=== PATIENT | male | born 1990 | race Caucasian/White ===

== ENCOUNTER 2017-01-05 19:59 | Emergency (ER) | payer OTHER ==
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
--- NOTE | 2017-01-05 20:29 | XR ---
EXAMINATION TYPE: XR shoulder complete RT DATE OF EXAM: 01/05/2017 COMPARISON: NONE HISTORY: Shoulder pain TECHNIQUE: 3 views FINDINGS: I see no fracture nor dislocation. Joint spaces are normal. There are no pathologic calcifi cations. IMPRESSION: Negative right shoulder exam.
[2017-01-05 21:15] VITALS: BP 116/60; PULSE 90; RESP 16; TEMP 96.9
== END 2017-01-05 21:15 | disposition home or self-care (01) ==
LOC: EC 19:59
DX: S40.011A Contusion of right shoulder, initial encounter (principal); F17.200 Nicotine dependence, unspecified, uncomplicated; Z86.73 Personal history of transient ischemic attack (TIA), and cerebral infarction without residual deficits; Z88.8 Allergy status to other drugs, medicaments and biological substances; W20.8XXA Other cause of strike by thrown, projected or falling object, initial encounter; Y93.89 Activity, other specified
CPT/HCPCS: 99284

== ENCOUNTER 2017-11-12 05:20 | Emergency (ER) | payer OTHER ==
[2017-11-12] MEDS ORDERED: CLINDAMYCIN 900 MG in DEXTROSE 5% IN WATER 50 ML IVPB STA ×2 (05:57)
--- NOTE | 2017-11-12 06:07 | ED ---
Upper Extremity HPI - General Chief Complaint: Extremity Injury, Upper Stated Complaint: swollen finger post op Time Seen by Provider: 11/12/17 05:29 Source: patient Mode of arrival: ambulatory Limitations: no limitations - History of Present Illness Initial Comments: 26 years old male injured his (fourth finger about 2 years ago he has seen A hand specialist Abbie Valle in [place], he has some ongoing drainage from this finger for about a year now. He injured his finger within the last 24 hours he woke up with throbbing finger pain and now pain is also radiating to the nipple neighboring fingers going to the fifth finger as well as his third finger near the site of the review of system is unremarkable otherwise - Related Data Home Medications Medication Instructions Recorded Confirmed Acetaminophen with Codeine 1 tab PO Q4H PRN 11/12/17 11/12/17 [Tylenol w/codeine #3] Previous Rx's Medication Instructions Recorded Amoxicillin/Potassium Clav 1 tab PO Q12HR #10 tab 11/12/17 [Augmentin 875-125 Tablet] Allergies Allergy/AdvReac Type Severity Reaction Status Date / Time esomeprazole magnesium Allergy Rash/Hives Verified 01/05/17 20:06 [From Nexium] omeprazole [From Prilosec] Allergy Rash/Hives Verified 01/05/17 20:06 omeprazole magnesium Allergy Rash/Hives Verified 01/05/17 20:06 [From Prilosec] Review of Systems ROS Statement: Those systems with pertinent positive or pertinent negative responses have been documented in the HPI. ROS Other: All systems not noted in ROS Statement are negative. Past Medical History Past Medical History: Asthma, CVA/TIA, GERD/Reflux Additional Past Medical History / Comment(s): davm spine History of Any Multi-Drug Resistant Organisms: None Reported Past Surgical History: Adenoidectomy, Hernia Repair, Orthopedic Surgery, Tonsillectomy Additional Past Surgical History / Comment(s): right forearm, left hand sx Past Psychological History: Bipolar Smoking Status: Current every day smoker Past Alcohol Use History: Rare Past Drug Use History: Marijuana General Exam - General Exam Comments Initial Comments: General: The patient is awake and alert, in no distress, and does not appear acutely ill. Skin: Skin is warm and dry and no rashes or lesions are noted. Eye: Pupils are equal, round and reactive to light, extra-ocular movements are intact; there is normal conjunctiva bilaterally. Ears, nose, mouth and throat: There are moist mucous membranes and no oral lesions. Neck: The neck is supple, there is no tenderness or JVD. Cardiovascular: There is a regular rate and rhythm. No murmur, rub or gallop is appreciated. Respiratory: To auscultation bilateral, no wheezing no rhonchi no distress respiratory kunz noticed Gastrointestinal: Soft, non-distended, non-tender abdomen without masses or organomegaly noted. There is no rebound or guarding present. Bowel sounds are unremarkable. Back: There is no tenderness to palpation in the midline. There is no obvious deformity. Musculoskeletal: Left hand fourth finger is slightly flexed about 25 at the distal interphalangeal joint, it seems quite tense and swollen and quite tender , there is a chronic wound size of about 3 mm has some mild secretions oozing Neurological: CN II-XII intact, Cranial nerves III through XII are intact. There are no obvious motor or sensory deficits. Coordination appears grossly intact. Speech is normal. Psychiatric: Cooperative, appropriate mood & affect, normal judgment. Limitations: no limitations Course Vital Signs 11/12/17 05:23 Temperature 97.6 F Pulse Rate 50 L Respiratory 20 Rate Blood Pressure 111/61 O2 Sat by Pulse 99 Oximetry CBC is normal, I&D was done on his fourth finger he does have a hand specialist for the last 2 years he wants to go see his hand specialist I agree with that when he was giving clindamycin IV in the ER x-ray was done it ruled out any osteomyelitis Medical Decision Making - Lab Data Result diagrams: 11/12/17 06:00 Lab Results 11/12/17 Range/Units 06:00 WBC 8.5 (3.8-10.6) k/uL RBC 4.38 (4.30-5.90) m/uL Hgb 14.2 (13.0-17.5) gm/dL Hct 40.2 (39.0-53.0) % MCV 91.7 (80.0-100.0) fL MCH 32.5 (25.0-35.0) pg MCHC 35.4 (31.0-37.0) g/dL RDW 12.6 (11.5-15.5) % Plt Count 152 (150-450) k/uL Neutrophils % 70 % Lymphocytes % 17 % Monocytes % 7 % Eosinophils % 5 % Basophils % 0 % Neutrophils # 5.9 (1.3-7.7) k/uL Lymphocytes # 1.5 (1.0-4.8) k/uL Monocytes # 0.6 (0-1.0) k/uL Eosinophils # 0.4 (0-0.7) k/uL Basophils # 0.0 (0-0.2) k/uL Disposition Clinical Impression: Infection of left hand Disposition: HOME SELF-CARE Condition: Good Instructions: Parony[facility]ia (ED) Additional Instructions: Will see Dr. Abbie Valle today hand specialist today Prescriptions: Amoxicillin/Potassium Clav [Augmentin 875-125 Tablet] 1 tab PO Q12HR #10 tab Is patient prescribed a controlled substance at d/c from ED?: No Referrals: Derek Arias DO [Primary Care Provider] - 1-2 days
[2017-11-12 06:32] LABS: Basophils % (A) 0 %; Eosinophils # (A) 0.4 k/uL (0-0.7); Eosinophils % (A) 5 %; HCT 40.2 % (39.0-53.0); HGB 14.2 gm/dL (13.0-17.5); Lymphocytes # (A) 1.5 k/uL (1.0-4.8); Lymphocytes % (A) 17 %; MCH 32.5 pg (25.0-35.0); MCHC 35.4 g/dL (31.0-37.0); MCV 91.7 fL (80.0-100.0); Monocytes # (A) 0.6 k/uL (0-1.0); Monocytes % (A) 7 %; Neutrophils # (A) 5.9 k/uL (1.3-7.7); Neutrophils % (A) 70 %; Platelet Count 152 k/uL (150-450); RBC 4.38 m/uL (4.30-5.90); RDW 12.6 % (11.5-15.5); WBC 8.5 k/uL (3.8-10.6)
--- NOTE | 2017-11-12 06:49 | XR ---
EXAM: XR Left Finger(s), 2 or More Views CLINICAL HISTORY: ITS.REASON XR Reason: Pain TECHNIQUE: Frontal, lateral and oblique views of finger(s) of the left hand. COMPARISON: No relevant prior studies available. FINDINGS: Bones/joints: No acute fracture or dislocation. The fourth digit is flexed position at the PIP. This may reflect ligamentous injury. Soft tissues: No radiopaque foreign body. Diffuse soft tissue swelling about the fourth mid to distal digit IMPRESSION: Soft tissue swelling about the fourth digit. No acute bony abnormality.
[2017-11-12] MEDS ORDERED: KETOROLAC 30 MG/ML 1 ML VIAL IVP STA (07:36)
[2017-11-12 07:47] VITALS: BP 111/76; PULSE 70; RESP 16
[2017-11-12 07:52] VITALS: TEMP 98.2
--- NOTE | 2017-11-13 02:07 | CDI ---
Documentation Clarification OP Dear Dave LESLIE MD As reviewed the chart, the documentation for I&D procedure is missing. Please do the addendum to code the procedure. Thank you, Ashely Calixto Mathematics Instructor If you have any question, Please contact blood bank manager at [phone] [facility]
--- NOTE | 2017-11-24 15:16 | ED ---
Medical Decision Making - Lab Data Result diagrams: 11/12/17 06:00 Lab Results 11/12/17 Range/Units 06:00 WBC 8.5 (3.8-10.6) k/uL RBC 4.38 (4.30-5.90) m/uL Hgb 14.2 (13.0-17.5) gm/dL Hct 40.2 (39.0-53.0) % MCV 91.7 (80.0-100.0) fL MCH 32.5 (25.0-35.0) pg MCHC 35.4 (31.0-37.0) g/dL RDW 12.6 (11.5-15.5) % Plt Count 152 (150-450) k/uL Neutrophils % 70 % Lymphocytes % 17 % Monocytes % 7 % Eosinophils % 5 % Basophils % 0 % Neutrophils # 5.9 (1.3-7.7) k/uL Lymphocytes # 1.5 (1.0-4.8) k/uL Monocytes # 0.6 (0-1.0) k/uL Eosinophils # 0.4 (0-0.7) k/uL Basophils # 0.0 (0-0.2) k/uL Disposition Clinical Impression: Infection of left hand Disposition: HOME SELF-CARE Condition: Good Instructions: Parony[facility]ia (ED) Additional Instructions: Will see Dr. Abbie Valle today hand specialist today Prescriptions: Amoxicillin/Potassium Clav [Augmentin 875-125 Tablet] 1 tab PO Q12HR #10 tab Is patient prescribed a controlled substance at d/c from ED?: No Referrals: Derek Arias DO [Primary Care Provider] - 1-2 days Procedures - Incision & Drainage Consent Obtained: verbal consent Time Out Performed?: Yes Site: hand Anesthetic Used: lidocaine 1% I&D Cleaning Method: Chloroprep Sterile Field Used?: Yes Scalpel Used: #11 Irrigation Performed?: Yes I&D Drainage Obtained: Serous Culture Obtained?: Yes Complications: other (none) Patient Tolerated Procedure: well
== END 2017-11-12 07:51 | disposition home or self-care (01) ==
LOC: EC 05:20
DX: L03.012 Cellulitis of left finger (principal); F17.200 Nicotine dependence, unspecified, uncomplicated; Z88.8 Allergy status to other drugs, medicaments and biological substances
CPT/HCPCS: 36415; 85025; 87070; 87205; 73140; 99283; 10060; 96365; 96375; J1885

== ENCOUNTER 2017-11-14 10:21 | Emergency (ER) | payer OTHER ==
[2017-11-14 10:34] VITALS: BP 121/75; PULSE 85; RESP 16; TEMP 97.9
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
== END 2017-11-14 11:07 | disposition home or self-care (01) ==
LOC: EC 10:21
DX: L08.9 Local infection of the skin and subcutaneous tissue, unspecified (principal); F17.200 Nicotine dependence, unspecified, uncomplicated; Z86.73 Personal history of transient ischemic attack (TIA), and cerebral infarction without residual deficits; Z88.8 Allergy status to other drugs, medicaments and biological substances
CPT/HCPCS: 99282

== ENCOUNTER 2017-12-02 14:24 | Emergency (ER) | payer OTHER ==
[2017-12-02 15:03] VITALS: BP 125/78; PULSE 60; RESP 18; TEMP 98.3
--- NOTE | 2017-12-02 15:15 | XR ---
EXAMINATION TYPE: XR hand complete LT DATE OF EXAM: 12/02/2017 CLINICAL HISTORY: Left hand pain after crushing injury TECHNIQUE: Frontal, lateral and oblique images of the left hand are obtained. COMPARISON: Left hand x-ray March 06, 2016. FINDINGS: Overlying gauze material mid to distal fourth digit is present making evaluation at this le xochilt suboptimal of the soft tissue. There is no acute fracture/dislocation evident in the left hand. The joint spaces in the left hand appear within normal limits. The overlying soft tissue otherwise a ppears unremarkable. IMPRESSION: There is no acute fracture or dislocation in the left hand.
--- NOTE | 2017-12-02 15:28 | ED ---
Upper Extremity HPI - General Chief Complaint: Extremity Injury, Upper Stated Complaint: LEFT HAND INJURY Time Seen by Provider: 12/02/17 15:23 Source: patient, RN notes reviewed Mode of arrival: ambulatory Limitations: no limitations - History of Present Illness Initial Comments: 27-year-old male presents emergency from chief complaint of left hand pain. Patient states that he is hand on a 80 pound bucket of concrete yesterday. Patient states it's sore today and cannot swing his hammer at work. Patient had a leave work because of the pain. Patient is right-hand dominant but swings a hammer with his left hand. Patient states there is no swelling no ecchymosis no other noted injuries. - Related Data Previous Rx's Medication Instructions Recorded Amoxicillin/Potassium Clav 1 tab PO Q12HR #10 tab 11/12/17 [Augmentin 875-125 Tablet] Ibuprofen [Motrin] 600 mg PO Q8HR PRN #30 tab 12/02/17 Allergies Allergy/AdvReac Type Severity Reaction Status Date / Time esomeprazole magnesium Allergy Rash/Hives Verified 12/02/17 15:03 [From Nexium] omeprazole [From Prilosec] Allergy Rash/Hives Verified 12/02/17 15:03 omeprazole magnesium Allergy Rash/Hives Verified 12/02/17 15:03 [From Prilosec] Review of Systems ROS Statement: Those systems with pertinent positive or pertinent negative responses have been documented in the HPI. ROS Other: All systems not noted in ROS Statement are negative. Past Medical History Past Medical History: Asthma, CVA/TIA, GERD/Reflux Additional Past Medical History / Comment(s): dav spine History of Any Multi-Drug Resistant Organisms: None Reported Past Surgical History: Adenoidectomy, Hernia Repair, Orthopedic Surgery, Tonsillectomy Additional Past Surgical History / Comment(s): right forearm, left hand sx Past Psychological History: Bipolar Smoking Status: Current every day smoker Past Alcohol Use History: Rare Past Drug Use History: Marijuana General Exam Limitations: no limitations General appearance: alert, in no apparent distress Neck exam: Present: normal inspection. Absent: tenderness, meningismus, lymphadenopathy Respiratory exam: Present: normal lung sounds bilaterally. Absent: respiratory distress, wheezes, rales, rhonchi, stridor Cardiovascular Exam: Present: regular rate, normal rhythm, normal heart sounds. Absent: systolic murmur, diastolic murmur, rubs, gallop, clicks Extremities exam: Present: other (Left hand there is tenderness along the fourth and fifth metacarpal region, no iris deformity neurovascular intact no ecchymosis) Course Vital Signs 12/02/17 15:00 Temperature 98.3 F Pulse Rate 60 Respiratory 18 Rate Blood Pressure 125/78 O2 Sat by Pulse 98 Oximetry Medical Decision Making - Medical Decision Making 27-year-old male presented from for left hand pain. Patient is left-hand contusion x-rays shows no acute fracture. Patient will be discharged with ibuprofen and work note for 2 days. Return parameters were discussed. Disposition Clinical Impression: Contusion of left hand Disposition: HOME SELF-CARE Condition: Stable Instructions: Contusion in Adults (ED) Additional Instructions: Please return to the Emergency Department if symptoms worsen or any other concerns. Prescriptions: Ibuprofen [Motrin] 600 mg PO Q8HR PRN #30 tab PRN Reason: Pain Is patient prescribed a controlled substance at d/c from ED?: No Referrals: Derek Arias DO [Primary Care Provider] - 1-2 days Time of Disposition: 15:28
== END 2017-12-02 15:39 | disposition home or self-care (01) ==
LOC: EC 14:24
DX: S60.222A Contusion of left hand, initial encounter (principal); F17.200 Nicotine dependence, unspecified, uncomplicated; Z88.8 Allergy status to other drugs, medicaments and biological substances; Z98.890 Other specified postprocedural states; X50.0XXA Overexertion from strenuous movement or load, initial encounter; Y99.0 Civilian activity done for income or pay
CPT/HCPCS: 99283

== ENCOUNTER 2018-08-25 14:24 | Emergency (ER) | payer OTHER ==
[2018-08-25 14:40] VITALS: RESP 18; TEMP 98.2
--- NOTE | 2018-08-25 15:16 | ED ---
ENT HPI - General Chief complaint: ENT Stated complaint: Ear pain Time Seen by Provider: 08/25/18 14:45 Source: patient, RN notes reviewed Mode of arrival: ambulatory Limitations: no limitations - History of Present Illness Initial comments: 27-year-old male presents emergency Department with chief complaint left ear pain, difficulty hearing. Patient states she's had problems for the last one year. He states his when he believes is from getting water in his ear. He states that he's been weak night with #pain then completely resolves. Denies fevers or chills. Denies any pain around his ear. Denies any current headache, dizziness, blurred vision, URI symptoms. - Related Data Previous Rx's Medication Instructions Recorded Amoxicillin/Potassium Clav 1 tab PO Q12HR #10 tab 11/12/17 [Augmentin 875-125 Tablet] Ibuprofen [Motrin] 600 mg PO Q8HR PRN #30 tab 12/02/17 Amoxicillin 875 mg PO Q12HR #20 tablet 08/25/18 Allergies Allergy/AdvReac Type Severity Reaction Status Date / Time esomeprazole magnesium Allergy Rash/Hives Verified 08/25/18 14:40 [From Nexium] omeprazole [From Prilosec] Allergy Rash/Hives Verified 08/25/18 14:40 omeprazole magnesium Allergy Rash/Hives Verified 08/25/18 14:40 [From Prilosec] Review of Systems ROS Statement: Those systems with pertinent positive or pertinent negative responses have been documented in the HPI. ROS Other: All systems not noted in ROS Statement are negative. Past Medical History Past Medical History: Asthma, CVA/TIA, GERD/Reflux Additional Past Medical History / Comment(s): davm spine History of Any Multi-Drug Resistant Organisms: None Reported Past Surgical History: Adenoidectomy, Hernia Repair, Orthopedic Surgery, Tonsillectomy Additional Past Surgical History / Comment(s): right forearm, left hand sx Past Psychological History: Bipolar Smoking Status: Current every day smoker Past Alcohol Use History: Rare Past Drug Use History: Marijuana General Exam Limitations: no limitations General appearance: alert, in no apparent distress Head exam: Present: atraumatic, normocephalic, normal inspection Eye exam: Present: normal appearance, PERRL, EOMI. Absent: scleral icterus, conjunctival injection, periorbital swelling ENT exam: Present: normal oropharynx, mucous membranes moist, normal external ear exam (Cerumen impaction on the left) Neck exam: Present: normal inspection, full ROM. Absent: tenderness, meningismus, lymphadenopathy Respiratory exam: Present: normal lung sounds bilaterally. Absent: respiratory distress, wheezes, rales, rhonchi, stridor Cardiovascular Exam: Present: regular rate, normal rhythm, normal heart sounds. Absent: systolic murmur, diastolic murmur, rubs, gallop, clicks Course Vital Signs 08/25/18 14:37 Temperature 98.2 F Pulse Rate 81 Respiratory 18 Rate Blood Pressure 123/83 O2 Sat by Pulse 98 Oximetry Procedures - Ear Wax Removal Left Ear Cerumenolytic Used: 5-10% Sodium Bicarb solution Ear Canal Irrigated by: MD BECKIE Ear Canal Irrigated With: warm saline with H2O2 using syringe/angiocath Ear Canal(s) Curetted: plastic scoops Results: Re-examined: cerumen removed completely TM Visible: TM(s) erythematous Ear Canal: atraumatic Patient Tolerated Procedure: well, no complications Complications: no problems Medical Decision Making - Medical Decision Making 27-year-old male presents emergency department for left ear pain. Patient's found to have cerumen impaction. This was lavaged. There is mild residual erythema we treated for suspected otitis media. Patient be discharged return parameters were discussed. Disposition Clinical Impression: Otitis media, Impacted cerumen of left ear Disposition: HOME SELF-CARE Condition: Stable Instructions (If sedation given, give patient instructions): Earache (ED) Additional Instructions: Please return to the Emergency Department if symptoms worsen or any other concerns. Prescriptions: Amoxicillin 875 mg PO Q12HR #20 tablet Is patient prescribed a controlled substance at d/c from ED?: No Referrals: Asif Goldsmith MD [Primary Care Provider] - 1-2 days Time of Disposition: 16:13
[2018-08-25 16:43] VITALS: BP 123/68; PULSE 69
== END 2018-08-25 16:42 | disposition home or self-care (01) ==
LOC: EC 14:24
DX: H61.22 Impacted cerumen, left ear (principal); H66.92 Otitis media, unspecified, left ear; F17.200 Nicotine dependence, unspecified, uncomplicated; Z86.73 Personal history of transient ischemic attack (TIA), and cerebral infarction without residual deficits; Z88.8 Allergy status to other drugs, medicaments and biological substances
CPT/HCPCS: 69210; 99282

== ENCOUNTER → 2018-09-10 | Outpatient (CLI) | payer OTHER ==
[2018-09-10 14:47] LABS: Basophils # (A) 0.1 k/uL (0-0.2); Basophils % (A) 1 %; Eosinophils # (A) 0.4 k/uL (0-0.7); Eosinophils % (A) 6 %; HGB 14.6 gm/dL (13.0-17.5); Lymphocytes % (A) 30 %; MCH 30.9 pg (25.0-35.0); MCHC 34.7 g/dL (31.0-37.0); Monocytes # (A) 0.5 k/uL (0-1.0); Monocytes % (A) 8 %; Neutrophils # (A) 3.7 k/uL (1.3-7.7); Neutrophils % (A) 54 %; Platelet Count 212 k/uL (150-450); RBC 4.72 m/uL (4.30-5.90); WBC 6.8 k/uL (3.8-10.6)
[2018-09-10 19:07] LABS: Valproic Acid (Depakene) 34.2 ug/mL (50.0-100.0); Vitamin D 25 Hydroxy 20.2 ng/mL (30.0-100.0)
[2018-09-10 19:14] LABS: Albumin 4.3 g/dL (3.80-4.90); Albumin/Globulin Ratio 2.53 (1.60-3.17); Anion Gap 6.3 mmol/L (4.00-12.00); Calcium 9.2 mg/dL (8.7-10.3); Carbon Dioxide 26.7 mmol/L (21.6-31.8); Globulin 1.7 g/dL (1.6-3.3); Potassium 4.4 mmol/L (3.5-5.5); Total Bilirubin 0.3 mg/dL (0.2-1.2)
[2018-09-10 19:21] LABS: T4, Free (Free Thyroxine) 1.1 ng/dL (0.80-1.80)
== END | disposition home or self-care (01) ==
LOC: LABWHC1 13:16
PROVIDERS: ATTEND Nurse Practitioner Acute Care
DX: E55.9 Vitamin D deficiency, unspecified (principal); E03.9 Hypothyroidism, unspecified; R53.82 Chronic fatigue, unspecified; R56.9 Unspecified convulsions
CPT/HCPCS: 36415; 80053; 80164; 82306; 82607; 84207; 84439; 84443; 84481; 85025

== ENCOUNTER 2021-03-11 11:04 | Emergency (ER) | payer OTHER ==
[2021-03-11 11:30] VITALS: BP 114/69; PULSE 74; RESP 18; TEMP 98.1
[2021-03-11] MEDS ORDERED: ONDANSETRON 4 MG/2 ML VIAL IVP STA (11:37)
[2021-03-11] MEDS ORDERED: SODIUM CHLORIDE 0.9% 1,000 ML IV STA (11:37)
[2021-03-11 12:00] LABS: Basophils # (A) 0.1 k/uL (0-0.2); Basophils % (A) 2 %; Eosinophils # (A) 0.4 k/uL (0-0.7); Eosinophils % (A) 6 %; HCT 44.3 % (39.0-53.0); HGB 15.5 gm/dL (13.0-17.5); Lymphocytes # (A) 1.3 k/uL (1.0-4.8); Lymphocytes % (A) 20 %; MCH 33.5 pg (25.0-35.0); MCV 95.9 fL (80.0-100.0); Mean Platelet Volume 8.5; Monocytes # (A) 0.4 k/uL (0-1.0); Monocytes % (A) 7 %; Neutrophils % (A) 61 %; Platelet Count 159 k/uL (150-450); RBC 4.62 m/uL (4.30-5.90); RDW 12.1 % (11.5-15.5); WBC 6.6 k/uL (3.8-10.6)
[2021-03-11 12:13] LABS: ALT 32 U/L (4-49); AST 39 U/L (17-59); African American GFR (CKD) >90 (>60 ml/min/1.73 sqM); Albumin 4.2 g/dL (3.5-5.0); Alkaline Phosphatase 64 U/L (38-126); Anion Gap 4 mmol/L; Blood Urea Nitrogen 11 mg/dL (9-20); Calcium 9.1 mg/dL (8.4-10.2); Carbon Dioxide 25 mmol/L (22-30); Chloride 108 mmol/L (98-107); Glucose 99 mg/dL (74-99); Lipase 81 U/L (23-300); Non-African American GFR(CKD) >90 (>60 ml/min/1.73 sqM); Potassium 4.5 mmol/L (3.5-5.1); Sodium 137 mmol/L (137-145); Total Bilirubin 0.5 mg/dL (0.2-1.3); Total Protein 6.7 g/dL (6.3-8.2)
--- NOTE | 2021-03-11 12:20 | ED ---
General Adult HPI - General Chief complaint: Nausea/Vomiting/Diarrhea Stated complaint: Nausea Time Seen by Provider: 03/11/21 11:33 Source: patient, RN notes reviewed Mode of arrival: ambulatory Limitations: no limitations - History of Present Illness Initial comments: 30-year-old male with a past medical history of asthma GERD since to the emergency room for nausea vomiting diarrhea. Patient states this started last night. States he has been in and out of the bathroom all day. He denies abdominal pain. Patient states he can't go to work at his work wanted him to come in. Denies fevers.patient does state that his nausea has subsided and he w as able to keep down a little bit of water but is still having diarrhea. Patient has no other complaints at this time including shortness of breath, chest pain, abdominal pain, headache, or visual changes. - Related Data Previous Rx's Medication Instructions Recorded Ondansetron [Zofran ODT] 4 mg PO Q8HR PRN #15 tab 03/11/21 Allergies Allergy/AdvReac Type Severity Reaction Status Date / Time esomeprazole magnesium Allergy Rash/Hives Verified 03/11/21 11:53 [From Nexium] omeprazole [From Prilosec] Allergy Rash/Hives Verified 03/11/21 11:53 omeprazole magnesium Allergy Rash/Hives Verified 03/11/21 11:53 [From Prilosec] Review of Systems ROS Statement: Those systems with pertinent positive or pertinent negative responses have been documented in the HPI. ROS Other: All systems not noted in ROS Statement are negative. Past Medical History Past Medical History: Asthma, CVA/TIA, GERD/Reflux Additional Past Medical History / Comment(s): davm spine History of Any Multi-Drug Resistant Organisms: None Reported Past Surgical History: Adenoidectomy, Hernia Repair, Orthopedic Surgery, Tonsillectomy Additional Past Surgical History / Comment(s): right forearm, left hand sx Past Psychological History: Bipolar Smoking Status: Current every day smoker Past Alcohol Use History: Rare Past Drug Use History: Marijuana General Exam Limitations: no limitations General appearance: alert, in no apparent distress Head exam: Present: atraumatic Eye exam: Present: normal appearance, PERRL, EOMI. Absent: scleral icterus, conjunctival injection ENT exam: Present: normal exam, mucous membranes moist Neck exam: Present: normal inspection, full ROM. Absent: tenderness Respiratory exam: Present: normal lung sounds bilaterally. Absent: respiratory distress, wheezes Cardiovascular Exam: Present: regular rate, normal rhythm, normal heart sounds GI/Abdominal exam: Present: soft, normal bowel sounds. Absent: distended, tenderness Course Vital Signs 03/11/21 11:26 Temperature 98.1 F Pulse Rate 74 Respiratory 18 Rate Blood Pressure 114/69 O2 Sat by Pulse 99 Oximetry Medical Decision Making - Medical Decision Making Vitals are stable. CBC CMP unremarkable. Lipase is normal. Patient likely has a viral gastroenteritis. He was given fluids and Zofran. He needs a work note which he states his he is here. He can be discharged to follow up with primary care. Will return here for any worsening symptoms. - Lab Data Result diagrams: 03/11/21 11:46 03/11/21 11:46 Lab Results 03/11/21 03/11/21 Range/Units 11:46 11:46 WBC 6.6 (3.8-10.6) k/uL RBC 4.62 (4.30-5.90) m/uL Hgb 15.5 (13.0-17.5) gm/dL Hct 44.3 (39.0-53.0) % MCV 95.9 (80.0-100.0) fL MCH 33.5 (25.0-35.0) pg MCHC 35.0 (31.0-37.0) g/dL RDW 12.1 (11.5-15.5) % Plt Count 159 (150-450) k/uL MPV 8.5 Neutrophils % 61 % Lymphocytes % 20 % Monocytes % 7 % Eosinophils % 6 % Basophils % 2 % Neutrophils # 4.0 (1.3-7.7) k/uL Lymphocytes # 1.3 (1.0-4.8) k/uL Monocytes # 0.4 (0-1.0) k/uL Eosinophils # 0.4 (0-0.7) k/uL Basophils # 0.1 (0-0.2) k/uL Sodium 137 (137-145) mmol/L Potassium 4.5 (3.5-5.1) mmol/L Chloride 108 H (98-107) mmol/L Carbon Dioxide 25 (22-30) mmol/L Anion Gap 4 mmol/L BUN 11 (9-20) mg/dL Creatinine 0.94 (0.66-1.25) mg/dL Est GFR (CKD-EPI)AfAm >90 (>60 ml/min/1.73 sqM) Est GFR (CKD-EPI)NonAf >90 (>60 ml/min/1.73 sqM) Glucose 99 (74-99) mg/dL Calcium 9.1 (8.4-10.2) mg/dL Total Bilirubin 0.5 (0.2-1.3) mg/dL AST 39 (17-59) U/L ALT 32 (4-49) U/L Alkaline Phosphatase 64 (38-126) U/L Total Protein 6.7 (6.3-8.2) g/dL Albumin 4.2 (3.5-5.0) g/dL Lipase 81 (23-300) U/L Disposition Clinical Impression: Nausea & vomiting, Diarrhea Disposition: HOME SELF-CARE Condition: Good Instructions (If sedation given, give patient instructions): Acute Nausea and Vomiting (ED), Acute Diarrhea (ED) Additional Instructions: Please take nausea medicine as needed. Please follow-up with your doctor in one to 2 days. Return to the emergency room for any worsening symptoms. Prescriptions: Ondansetron [Zofran ODT] 4 mg PO Q8HR PRN #15 tab PRN Reason: Nausea Is patient prescribed a controlled substance at d/c from ED?: No Referrals: Rocio Summers MD [STAFF PHYSICIAN] - 1-2 days Time of Disposition: 13:03
== END 2021-03-11 13:29 | disposition home or self-care (01) ==
LOC: EC 11:04
DX: R11.2 Nausea with vomiting, unspecified (principal); R19.7 Diarrhea, unspecified; J45.909 Unspecified asthma, uncomplicated; K21.9 Gastro-esophageal reflux disease without esophagitis; F17.200 Nicotine dependence, unspecified, uncomplicated; F12.90 Cannabis use, unspecified, uncomplicated
CPT/HCPCS: 36415; 80053; 83690; 85025; 99284; 96374; 96361; J2405

== ENCOUNTER → 2022-01-09 | Outpatient (CLI) | payer OTHER ==
--- NOTE | 2022-01-09 11:12 | XR ---
EXAMINATION TYPE: XR cervical spine comp DATE OF EXAM: 01/09/2022 11:00 AM INDICATION: Patient age:Male; 31 years old; Reason for study: S16.1XXD S29.012A; COMPARISON: None TECHNIQUE: The cervical spine was imaged in 4 projections. Frontal, lateral, odontoid and bilateral o blique. FINDINGS: The osseous structures show normal alignment without evidence of an acute fracture. The intervertebra l disk spaces are preserved. Pedicles are intact. Soft tissues are within normal limits. The odonto id appears intact. IMPRESSION: 1. No fracture or dislocation. 2. Minimal degenerative disc disease changes of the cervical spine.
--- NOTE | 2022-01-09 11:19 | XR ---
EXAMINATION TYPE: XR thoracic spine 3 views complete, XR shoulder complete 3 views RT DATE OF EXAM: 01/09/2022 Comparison: None Clinical History: 31-year-old male S16.1XXD, S29.012A Findings: THORACIC SPINE: Levoconvex curvature upper third thoracic spine. 12 rib-bearing thoracic vertebral bodies. All pedicl es are visualized. Slight accentuated mid thoracic kyphosis. Mild degenerative disc disease mid to lo wer thoracic spine. Vertebral body heights are preserved and alignment is maintained. RIGHT SHOULDER: AC joint is intact. Subacromial space is preserved. No delineation of the greater tuberosity. No tend inous or bursal calcifications. No acute fracture, subluxation, or dislocation. Impression: 1. Thoracic spine: Levoconvex scoliosis upper third thoracic spine. Mild degenerative disc disease mi d to lower thoracic spine. No vertebral compression collapse or malalignment. 2. Right shoulder: No acute osseous abnormality seen.
== END | disposition home or self-care (01) ==
LOC: RADXRMAIN 10:01
PROVIDERS: ATTEND Emergency Medicine
DX: S16.1XXD Strain of muscle, fascia and tendon at neck level, subsequent encounter (principal); M50.30 Other cervical disc degeneration, unspecified cervical region
CPT/HCPCS: 72050; 72072

== ENCOUNTER 2022-09-17 12:17 | Emergency (ER) | payer OTHER ==
[2022-09-17 13:10] VITALS: RESP 20
--- NOTE | 2022-09-17 13:27 | ED ---
General Adult HPI - General Chief complaint: Extremity Injury, Upper Stated complaint: [facility] - lt hand injury Time Seen by Provider: 09/17/22 13:00 Source: patient, RN notes reviewed, old records reviewed Mode of arrival: ambulatory Limitations: no limitations - History of Present Illness Initial comments: This is a 31-year-old male who presents emergency Department complaining of left hand pain and left forearm pain. Patient states she jumped off a six-foot platform and on the way down hit his hand into a bunch of pallets on the way down he had 2 or 3 times. Patient states he has no wrist pain denies any shoulder pain or any other injury at this time. Patient is not bleeding or have any abrasions. - Related Data Previous Rx's Medication Instructions Recorded Ondansetron [Zofran ODT] 4 mg PO Q8HR PRN #15 tab 03/11/21 Allergies Allergy/AdvReac Type Severity Reaction Status Date / Time esomeprazole magnesium Allergy Rash/Hives Verified 09/17/22 13:10 [From Nexium] omeprazole [From Prilosec] Allergy Rash/Hives Verified 09/17/22 13:10 omeprazole magnesium Allergy Rash/Hives Verified 09/17/22 13:10 [From Prilosec] Review of Systems ROS Statement: Those systems with pertinent positive or pertinent negative responses have been documented in the HPI. ROS Other: All systems not noted in ROS Statement are negative. Past Medical History Past Medical History: Asthma, CVA/TIA, GERD/Reflux Additional Past Medical History / Comment(s): davm spine, scoliosis, DDD History of Any Multi-Drug Resistant Organisms: None Reported Past Surgical History: Adenoidectomy, Hernia Repair, Orthopedic Surgery, Tonsillectomy Additional Past Surgical History / Comment(s): right forearm, left hand sx Past Psychological History: Bipolar Smoking Status: Current every day smoker Past Alcohol Use History: Rare Past Drug Use History: Marijuana General Exam - General Exam Comments Initial Comments: GENERAL Patient is well-developed and well-nourished. Patient is in mild distress. EYES Patient's pupils are equal and round. Extraocular motion is intact SKIN Unremarkable NEURO The patient is alert and oriented 3 PYSCH Patient has normal interpersonal interactions. MUSCULOSKELETAL Patient has tenderness at the distal of the fifth metacarpal and has a little posterior elbow pain. Patient has no pain in the wrist at all. Patient denies any pain in the shoulder Limitations: no limitations Course Vital Signs 09/17/22 13:08 Temperature 98.6 F Pulse Rate 67 Respiratory 20 Rate Blood Pressure 127/66 O2 Sat by Pulse 96 Oximetry Medical Decision Making - Medical Decision Making Was pt. sent in by a medical professional or institution (, JOON, ABSTRACT WRITER, urgent care, hospital, or prison...) When possible be specific @ -No Did you speak to anyone other than the patient for history (EMS, parent, family, police, friend...)? What history was obtained from this source @ -No Did you review nursing and triage notes (agree or disagree)? Why? @ -I reviewed and agree with nursing and triage notes Were old charts reviewed (outside hosp., previous admission, EMS record, old EKG, old radiological studies, urgent care reports/EKG's, prison records)? Report findings @ -No old charts were reviewed Differential Diagnosis (chest pain, altered mental status, abdominal pain women, abdominal pain men, vaginal bleeding, weakness, fever, dyspnea, syncope, headache, dizziness, GI bleed, back pain, seizure, CVA, palpatations, mental health, musculoskeletal)? @ -Differential Musculoskeletal Muscular strain, contusion, ligament sprain, fracture, arthritis, septic arthritis, bursitis, cellulitis, muscle spasm, nerve compression, DVT, arterial occlusion, herpes zoster, electrolyte abnormality, tumor.... This is not meant to be in all inclusive list EKG interpreted by me (3pts min.). @ -As above X-rays interpreted by me (1pt min.). @ -X-ray of the hand and forearm were interpreted by myself I saw no acute fractures CT interpreted by me (1pt min.). @ -None done U/S interpreted by me (1pt. min.). @ -None done What testing was considered but not performed or refused? (CT, X-rays, U/S, labs)? Why? @ -None What meds were considered but not given or refused? Why? @ -None Did you discuss the management of the patient with other professionals (professionals i.e. JOON Woody, ABSTRACT WRITER, lab, RT, psych nurse, social media executive, dietetic assistant, teacher, college service officer, hospice case manager)? Give summary @ -No Was smoking cessation discussed for >3mins.? @ -No Was critical care preformed (if so, how long)? @ -No Were there social determinants of health that impacted care today? How? (Homelessness, low income, unemployed, alcoholism, drug addiction, transportation, low edu. Level, literacy, decrease access to med. care, group home, rehab)? @ -No Was there de-escalation of care discussed even if they declined (Discuss DNR or withdrawal of care, Hospice)? DNR status @ -No What co-morbidities impacted this encounter? (DM, HTN, Smoking, COPD, CAD, Cancer, CVA, ARF, Chemo, Hep., AIDS, mental health diagnosis, sleep apnea, morbid obesity)? @ -None Was patient admitted / discharged? Hospital course, mention meds given and route, prescriptions, significant lab abnormalities, going to OR and other pertinent info. @ -Patient had appropriate x-rays and they were all negative For fracture. Patient was given an Chaitanya wrap and a couple days off work and he is to follow up with or so or his primary medical care doctor.Undiagnosed new problem with uncertain prognosis? @ -No Drug Therapy requiring intensive monitoring for toxicity (Heparin, Nitro, Insulin, Cardizem)? @ -No Were any procedures done? @ -No Diagnosis/symptom? @ -Sprain hand Acute, or Chronic, or Acute on Chronic? @ -default Uncomplicated (without systemic symptoms) or Complicated (systemic symptoms)? @ -Uncomplicated Side effects of treatment? @ -No Exacerbation, Progression, or Severe Exacerbation? @ -No Poses a threat to life or bodily function? How? (Chest pain, [place], [place], pneumonia, PE, COPD, DKA, ARF, appy, cholecystitis, CVA, Diverticulitis, Homicidal, Suicidal, threat to staff... and all critical care pts) @ -No Disposition Clinical Impression: Hand sprain Disposition: HOME SELF-CARE Instructions (If sedation given, give patient instructions): Hand Sprain (ED) Is patient prescribed a controlled substance at d/c from ED?: No Referrals: Asif Goldsmith MD [Primary Care Provider] - 1-2 days Time of Disposition: 14:02
--- NOTE | 2022-09-17 13:51 | XR ---
EXAMINATION TYPE: XR hand complete LT DATE OF EXAM: 09/17/2022 1:39 PM INDICATION: Patient age:Male; 31 years old; Reason for study: Trauma; [facility]. COMPARISON: Left hand radiographs 12/02/2017 TECHNIQUE: Frontal, lateral and oblique views of the left hand were obtained. FINDINGS: Normal alignment of the visualized joints. No acute osseous pathology is identified. No e vidence of soft tissue swelling. No radiopaque foreign body. IMPRESSION: No acute osseous pathology.
--- NOTE | 2022-09-17 13:52 | XR ---
EXAMINATION TYPE: XR forearm LT DATE OF EXAM: 09/17/2022 1:39 PM INDICATION: Patient age:Male; 31 years old; Reason for study: Trauma; [facility]. COMPARISON: Left hand radiograph the same date. TECHNIQUE: The left forearm was examined in AP and lateral projections. FINDINGS: No acute osseous pathology, soft tissue swelling or joint dislocations are seen. No radiop aque foreign body. IMPRESSION: No evidence of acute fracture.
[2022-09-17 14:39] VITALS: BP 128/68; PULSE 70; TEMP 98
== END 2022-09-17 14:39 | disposition home or self-care (01) ==
LOC: EC 12:17
DX: S63.92XA Sprain of unspecified part of left wrist and hand, initial encounter (principal); J45.909 Unspecified asthma, uncomplicated; F17.200 Nicotine dependence, unspecified, uncomplicated; F12.90 Cannabis use, unspecified, uncomplicated; F31.9 Bipolar disorder, unspecified; Z88.8 Allergy status to other drugs, medicaments and biological substances; Z86.73 Personal history of transient ischemic attack (TIA), and cerebral infarction without residual deficits; W22.8XXA Striking against or struck by other objects, initial encounter; Y93.39 Activity, other involving climbing, rappelling and jumping off
CPT/HCPCS: 99283

== ENCOUNTER → 2022-09-25 | Outpatient (CLI) | payer OTHER ==
--- NOTE | 2022-09-25 14:03 | XR ---
EXAMINATION TYPE: XR hand complete LT DATE OF EXAM: 09/25/2022 1:42 PM INDICATION: Patient age:Male; 31 years old; Reason for study: S60.212D sprain; COMPARISON: None TECHNIQUE: Frontal, lateral and oblique views of the left hand were obtained. FINDINGS: No evidence of fracture or dislocation. Soft tissues are grossly unremarkable IMPRESSION: No acute osseous pathology.
--- NOTE | 2022-09-25 14:03 | XR ---
Exam: Left wrist 4 views Date: 09/25/2022 Comparison: None Clinical History: Status post fall Technique: Multiple views of the left wrist were obtained per protocol. Findings: There is no acute fracture. There is no dislocation. Osseous mineralization is appropriate for the pa tient's age. There is no radiopaque foreign body. Impression: No acute fracture or dislocation of the left wrist.
== END | disposition home or self-care (01) ==
LOC: RADXRMAIN 13:10
PROVIDERS: ATTEND Emergency Medicine
DX: S60.212D Contusion of left wrist, subsequent encounter (principal); S60.222D Contusion of left hand, subsequent encounter

== ENCOUNTER 2024-04-28 08:52 | Emergency (ER) | payer OTHER ==
[2024-04-28 09:03] VITALS: BP 112/71; PULSE 66; RESP 18; TEMP 98
--- NOTE | 2024-04-28 09:39 | ED ---
General Adult HPI - General Chief complaint: Dental/Oral Stated complaint: dental infection/back pain Time Seen by Provider: 04/28/24 09:00 Source: patient, RN notes reviewed, old records reviewed Mode of arrival: ambulatory Limitations: no limitations - History of Present Illness Initial comments: This is a 33-year-old male who presents to the emergency department complaining of some dental pain. Patient states in the right bottom jawline he had some tenderness and a fluctuant area which he broke open last night but the pain still persist. Patient states he thinks he had a small abscess because a lot of pus came out. Patient states he also has some pain in his lower back on the left side which radiates down his leg and he has been told in the past he had degenerative disc disease. Patient states has been no injury or trauma to the area. She denies any numbness or weakness. Patient denies any difficulty urinating or urinary incontinence. - Related Data Previous Rx's Medication Instructions Recorded Ondansetron [Zofran ODT] 4 mg PO Q8HR PRN #15 tab 03/11/21 Amoxicillin 500 mg PO Q8H #30 capsule 04/28/24 predniSONE [Deltasone] 40 mg PO DAILY #8 tab 04/28/24 Allergies Allergy/AdvReac Type Severity Reaction Status Date / Time esomeprazole magnesium Allergy Rash/Hives Verified 04/28/24 09:03 [From Nexium] omeprazole [From Prilosec] Allergy Rash/Hives Verified 04/28/24 09:03 omeprazole magnesium Allergy Rash/Hives Verified 04/28/24 09:03 [From Prilosec] Review of Systems ROS Statement: Those systems with pertinent positive or pertinent negative responses have been documented in the HPI. ROS Other: All systems not noted in ROS Statement are negative. Past Medical History Past Medical History: Asthma, CVA/TIA, GERD/Reflux Additional Past Medical History / Comment(s): davm spine, scoliosis, DDD History of Any Multi-Drug Resistant Organisms: None Reported Past Surgical History: Adenoidectomy, Hernia Repair, Orthopedic Surgery, Tonsillectomy Additional Past Surgical History / Comment(s): right forearm, left hand sx Past Psychological History: Bipolar Smoking Status: Current every day smoker Past Alcohol Use History: Rare Past Drug Use History: Marijuana General Exam - General Exam Comments Initial Comments: GENERAL: Patient is well-developed and well-nourished. Patient is nontoxic and well- hydrated and is in mild distress. ENT: Neck is soft and supple. No significant lymphadenopathy is noted. Oropharynx is clear. Moist mucous membranes. Neck has full range of motion without eliciting any pain. Patient has tenderness in the lower right jawline just beneath the teeth there is no obvious abscess at this point EYES: The sclera were anicteric and conjunctiva were pink and moist. Extraocular movements were intact and pupils were equal round and reactive to light. Eyelids were unremarkable. SKIN: Skin is clear with no lesions or rashes and otherwise unremarkable. NEUROLOGIC: Patient is alert and oriented x3. Cranial nerves II through XII are grossly intact. Motor and sensory are also intact. Normal speech, volume and content. Symmetrical smile. Straight leg test is positive at about 45 degrees on the left negative on the right MUSCULOSKELETAL: Normal extremities with adequate strength and full range of motion. PSYCHIATRIC: Normal psychiatric evaluation. Limitations: no limitations Course Vital Signs 04/28/24 09:01 Temperature 98 F Pulse Rate 66 Respiratory 18 Rate Blood Pressure 112/71 O2 Sat by Pulse 98 Oximetry Medical Decision Making - Medical Decision Making Was pt. sent in by a medical professional or institution (, PA, INTERIOR DESIGN PROFESSOR, urgent care, hospital, or usp...) When possible be specific @No Did you speak to anyone other than the patient for history (EMS, parent, family, police, friend...)? What history was obtained from this source @ -No Did you review nursing and triage notes (agree or disagree)? Why? @ -I reviewed and agree with nursing and triage notes Were old charts reviewed (outside hosp., previous admission, EMS record, old EKG, old radiological studies, urgent care reports/EKG's, usp records)? Report findings @ -No old charts were reviewed Differential Diagnosis? @ -Lower back strain, sciatica, degenerative disc disease, dental pain, dental infection, abscess dental, this is not an all-inclusive list EKG interpreted by me (3pts min.). @ -As above X-rays interpreted by me (1pt min.). @ -None done CT interpreted by me (1pt min.). @ -None done U/S interpreted by me (1pt. min.). @ -None done What testing was considered but not performed or refused? (CT, X-rays, U/S, labs)? Why? @ -None What meds were considered but not given or refused? Why? @ -None Did you discuss the management of the patient with other professionals (professionals i.e. , PA, INTERIOR DESIGN PROFESSOR, lab, RT, psych nurse, social work therapist, head buyer tobacco, teacher, assurance officer, case advocate)? Give summary @ -No Was smoking cessation discussed for >3mins.? @ -No Was critical care preformed (if so, how long)? @ -No Were there social determinants of health that impacted care today? How? (Homelessness, low income, unemployed, alcoholism, drug addiction, transportation, low edu. Level, literacy, decrease access to med. care, [facility] [facility], rehab)? @ -No Was there de-escalation of care discussed even if they declined (Discuss DNR or withdrawal of care, Hospice)? DNR status @ -No What co-morbidities impacted this encounter? (DM, HTN, Smoking, COPD, CAD, Cancer, CVA, ARF, Chemo, Hep., AIDS, mental health diagnosis, sleep apnea, morbid obesity)? @ -None Was patient admitted / discharged? Hospital course, mention meds given and route, prescriptions, significant lab abnormalities, going to OR and other pertinent info. @ -Patient will be treated with steroids for his sciatica. Patient will be given antibiotics for his dental infection Undiagnosed new problem with uncertain prognosis? @ -No Drug Therapy requiring intensive monitoring for toxicity (Heparin, Nitro, Insulin, Cardizem)? @ -No Were any procedures done? @ -No Diagnosis/symptom? @ -Dental infection Acute, or Chronic, or Acute on Chronic? @ -Acute Uncomplicated (without systemic symptoms) or Complicated (systemic symptoms)? @ -Uncomplicated Side effects of treatment? @ -No Exacerbation, Progression, or Severe Exacerbation? @ -No Poses a threat to life or bodily function? How? (Chest pain, [place], [place], pneumonia, PE, COPD, DKA, ARF, appy, cholecystitis, CVA, Diverticulitis, Homicidal, Suicidal, threat to staff... and all critical care pts) @ -No Diagnosis/symptom? @ -Sciatica Acute, or Chronic, or Acute on Chronic? @ -Acute Uncomplicated (without systemic symptoms) or Complicated (systemic symptoms)? @ -Uncomplicated Side effects of treatment? @ -None Exacerbation, Progression, or Severe Exacerbation] @ -No Poses a threat to life or bodily function? @ -No Disposition Clinical Impression: Dental infection, Sciatica Disposition: HOME SELF-CARE Condition: Good Instructions (If sedation given, give patient instructions): Dental Abscess (ED), Sciatica (ED) Additional Instructions: Patient should follow-up with a dentist. Prescriptions: Amoxicillin 500 mg PO Q8H #30 capsule predniSONE [Deltasone] 40 mg PO DAILY #8 tab Is patient prescribed a controlled substance at d/c from ED?: No Referrals: [facility] [NON-STAFF] - 1-2 days [facility] [NON-STAFF] - 1-2 days None,Stated [Primary Care Provider] - 1-2 days Forms: Area PCPs Time of Disposition: 09:38
== END 2024-04-28 09:50 | disposition home or self-care (01) ==
LOC: EC 08:52
DX: M54.32 Sciatica, left side (principal); K04.7 Periapical abscess without sinus; F17.200 Nicotine dependence, unspecified, uncomplicated; Z88.8 Allergy status to other drugs, medicaments and biological substances; Z86.73 Personal history of transient ischemic attack (TIA), and cerebral infarction without residual deficits; Z90.89 Acquired absence of other organs
CPT/HCPCS: 99282

== ENCOUNTER 2024-12-10 22:50 | Emergency (ER) | payer OTHER ==
--- NOTE | 2024-12-10 23:08 | ED ---
General Adult HPI - General Chief complaint: Skin/Abscess/Foreign Body Stated complaint: Abscess on face Time Seen by Provider: 12/10/24 22:59 Source: patient Mode of arrival: ambulatory Limitations: no limitations - History of Present Illness Initial comments: 34-year-old male presenting with chief complaint of painful bumps to the face. He woke up with them today. There is one on his left cheek and one on his upper lip. Earlier today he was shaving his face and noticed that he had some pus draining from the bump on his upper lip. He reports that yesterday him and 4 other people were showing the same paintball mask. He is having no fevers. No significant periorbital swelling or difficulty with extraocular motions. No other complaints. - Related Data Previous Rx's Medication Instructions Recorded Ondansetron [Zofran ODT] 4 mg PO Q8HR PRN #15 tab 03/11/21 Amoxicillin 500 mg PO Q8H #30 capsule 04/28/24 predniSONE [Deltasone] 40 mg PO DAILY #8 tab 04/28/24 Allergies Allergy/AdvReac Type Severity Reaction Status Date / Time esomeprazole magnesium Allergy Rash/Hives Verified 12/10/24 22:58 [From Nexium] omeprazole [From Prilosec] Allergy Rash/Hives Verified 12/10/24 22:58 omeprazole magnesium Allergy Rash/Hives Verified 12/10/24 22:58 [From Prilosec] Review of Systems ROS Statement: Those systems with pertinent positive or pertinent negative responses have been documented in the HPI. ROS Other: All systems not noted in ROS Statement are negative. Past Medical History Past Medical History: Asthma, CVA/TIA, GERD/Reflux Additional Past Medical History / Comment(s): davm spine, scoliosis, DDD History of Any Multi-Drug Resistant Organisms: None Reported Past Surgical History: Adenoidectomy, Hernia Repair, Orthopedic Surgery, Tonsillectomy Additional Past Surgical History / Comment(s): right forearm, left hand sx Past Psychological History: Anxiety, Bipolar Smoking Status: Current every day smoker Past Alcohol Use History: Rare Past Drug Use History: Marijuana General Exam Limitations: no limitations General appearance: alert, in no apparent distress Expanded Head exam: Present: other (Small painful bump to the left cheek) Eye exam: Present: normal appearance, EOMI. Absent: periorbital swelling Neck exam: Present: normal inspection. Absent: meningismus Respiratory exam: Absent: respiratory distress Cardiovascular Exam: Present: regular rate Neurological exam: Present: alert, oriented X3 Psychiatric exam: Present: normal affect, normal mood Skin exam: Present: warm, dry Expanded Type of lesion: Present: abscess (Small facial abscess) Course Vital Signs 12/10/24 22:56 Temperature 97.9 F Pulse Rate 63 Respiratory 18 Rate Blood Pressure 113/70 O2 Sat by Pulse 99 Oximetry Medical Decision Making - Medical Decision Making Was pt. sent in by a medical professional or institution (, JOON, COMPLIANCE PROFESSIONAL, urgent care, hospital, or usp...) When possible be specific @ -No Did you speak to anyone other than the patient for history (EMS, parent, family, police, friend...)? What history was obtained from this source @ -No Did you review nursing and triage notes (agree or disagree)? Why? @ -I reviewed and agree with nursing and triage notes Were old charts reviewed (outside hosp., previous admission, EMS record, old EKG, old radiological studies, urgent care reports/EKG's, usp records)? Report findings @ -No old charts were reviewed Differential Diagnosis (chest pain, altered mental status, abdominal pain women, abdominal pain men, vaginal bleeding, weakness, fever, dyspnea, syncope, headache, dizziness, GI bleed, back pain, seizure, CVA, palpatations, mental health, musculoskeletal)? @ -Differential includes abscess, cellulitis, allergic reaction, not an all- inclusive list EKG interpreted by me (3pts min.). @ -As above X-rays interpreted by me (1pt min.). @ -None done CT interpreted by me (1pt min.). @ -None done U/S interpreted by me (1pt. min.). @ -None done What testing was considered but not performed or refused? (CT, X-rays, U/S, labs)? Why? @ -None What meds were considered but not given or refused? Why? @ -None Did you discuss the management of the patient with other professionals (professionals i.e. JOON Woody, COMPLIANCE PROFESSIONAL, lab, RT, psych nurse, social service liaison, gleason gear generator, teacher, physics technical officer, oil field caser)? Give summary @ -No Was smoking cessation discussed for >3mins.? @ -No Was critical care preformed (if so, how long)? @ -No Were there social determinants of health that impacted care today? How? (Homelessness, low income, unemployed, alcoholism, drug addiction, transportation, low edu. Level, literacy, decrease access to med. care, intermediate, rehab)? @ -No Was there de-escalation of care discussed even if they declined (Discuss DNR or withdrawal of care, Hospice)? DNR status @ -No What co-morbidities impacted this encounter? (DM, HTN, Smoking, COPD, CAD, Cancer, CVA, ARF, Chemo, Hep., AIDS, mental health diagnosis, sleep apnea, morbid obesity)? @ -None Was patient admitted / discharged? Hospital course, mention meds given and route, prescriptions, significant lab abnormalities, going to OR and other pertinent info. @ -34-year-old male presenting with chief complaint of 2 painful bumps to his face. He notes that yesterday he was sharing a paintball mask with other people. He had some pus draining from a bump on his lip earlier today. On examination there is a small indurated abscess to the left cheek, there is no periorbital involvement. Patient will be started on Keflex and Bactrim. He is educated on wound care and signs of worsening infection that should prompt reevaluation. Follow-up with PCP. Report back to ER with any new or worsening symptoms. Discussed return parameters and answered all questions. Patient conveyed verbal understanding and agreed to the plan. I discussed this case in detail with my attending Dr. Carballo Undiagnosed new problem with uncertain prognosis? @ -No Drug Therapy requiring intensive monitoring for toxicity (Heparin, Nitro, Insulin, Cardizem)? @ -No Were any procedures done? @ -No Diagnosis/symptom? @ -Facial abscess Acute, or Chronic, or Acute on Chronic? @ -Acute Uncomplicated (without systemic symptoms) or Complicated (systemic symptoms)? @ -Uncomplicated Side effects of treatment? @ -No Exacerbation, Progression, or Severe Exacerbation? @ -No Poses a threat to life or bodily function? How? (Chest pain, [place], [place], pneumonia, PE, COPD, DKA, ARF, appy, cholecystitis, CVA, Diverticulitis, Homicidal, Suicidal, threat to staff... and all critical care pts) @ -Unlikely Disposition Clinical Impression: Facial abscess Disposition: HOME SELF-CARE Condition: Good Instructions (If sedation given, give patient instructions): Abscess (ED) Additional Instructions: Follow-up with PCP. Report back to ER with any new or worsening symptoms. Use warm compresses to help bring any remaining pus to the surface. Take medication as prescribed. Is patient prescribed a controlled substance at d/c from ED?: No Referrals: Nj Mancilla MD [Primary Care Provider] - 1-2 days Time of Disposition: 23:08
[2024-12-10] MEDS: CEPHALEXIN 500 MG CAP PO STA (23:26)
[2024-12-10] MEDS: CEPHALEXIN 500MG STARTER PACK 4 CAP BTL PO STA (23:27)
[2024-12-10] MEDS: SULFAMETH-TMP DS STARTER PACK 2 TAB BTL PO STA (23:27)
[2024-12-10] MEDS: SULFAMETHOX-TMP 800-160MG 1 EACH TAB PO STA (23:27)
[2024-12-10 23:36] VITALS: BP 115/68; PULSE 64; RESP 17; TEMP 97.8
== END 2024-12-10 23:35 | disposition home or self-care (01) ==
LOC: EC 22:50
DX: L02.01 Cutaneous abscess of face (principal); F17.200 Nicotine dependence, unspecified, uncomplicated; Z88.8 Allergy status to other drugs, medicaments and biological substances
CPT/HCPCS: 99283